=== PATIENT | female | born 1975 | race Two or more races ===

== ENCOUNTER 2019-11-22 19:20 | Emergency (ER) | payer MEDICAID, OTHER ==
[~2019-11-22] VITALS: Ht 160 cm; Wt 77.1 kg
[2019-11-22 20:48] VITALS: BP 149/79
== END 2019-11-22 20:49 | disposition home or self-care (01) ==
LOC: ER 19:20
DX: S61.451A Open bite of right hand, initial encounter (principal); E11.9 Type 2 diabetes mellitus without complications; E78.5 Hyperlipidemia, unspecified; I10 Essential (primary) hypertension; Z98.51 Tubal ligation status; W54.0XXA Bitten by dog, initial encounter; Y93.89 Activity, other specified; Y92.89 Other specified places as the place of occurrence of the external cause; Y99.8 Other external cause status